=== PATIENT | male | born 1970 ===

== ENCOUNTER 2018-04-08 14:04 | Emergency (ER) | payer OTHER ==
[~2018-04-08] VITALS: Ht 167.6 cm; Wt 89.4 kg
[2018-04-08] MEDS ORDERED: VENTOLIN HFA18 GM (14:19)
[2018-04-08] MEDS ORDERED: ALBUTEROL0.63 MG/3 IH (14:20)
[2018-04-08] MEDS ORDERED: SINGULAIR10 MG PO (14:20)
== END 2018-04-09 08:29 | disposition home or self-care (01) ==
LOC: ER 14:04 → EDBD 14:59 → ER 04-09 08:29
DX: J45.998 Other asthma (principal); J06.9 Acute upper respiratory infection, unspecified

== ENCOUNTER 2020-08-19 12:54 | Emergency (ER) | payer OTHER ==
[~2020-08-19] VITALS: Ht 175.3 cm; Wt 87.5 kg
[~2020-08-19 12:54] MED LIST: ALBUTEROL0.63 MG/3 IH; SINGULAIR10 MG PO; VENTOLIN HFA18 GM
[2020-08-19] MEDS ORDERED: SINGULAIR10 MG PO (13:15)
== END 2020-08-19 16:47 | disposition home or self-care (01) ==
LOC: ER 12:54
DX: B34.9 Viral infection, unspecified (principal); Z11.52 Encounter for screening for COVID-19

== ENCOUNTER 2022-06-09 12:29 | Emergency (ER) | payer OTHER ==
[~2022-06-09] VITALS: Ht 175.3 cm; Wt 91.6 kg
== END 2022-06-09 17:04 | disposition home or self-care (01) ==
LOC: ER 12:29
DX: L03.90 Cellulitis, unspecified (principal)

== ENCOUNTER 2022-07-06 12:13 | Inpatient (IN) | payer OTHER ==
[~2022-07-06] VITALS: Ht 175.3 cm; Wt 90.7 kg
== END 2022-07-09 14:33 | disposition home or self-care (01) | DRG 392 ==
LOC: ER 12:13 → SEC-K 17:12 → MEDJ 17:12
PROVIDERS: ADMIT Internal Medicine; ATTEND Internal Medicine
PROC: BW21ZZZ Computerized Tomography (CT Scan) of Abdomen and Pelvis (ICD-10-PCS; principal; 2022-07-06)
DX: K57.32 Diverticulitis of large intestine without perforation or abscess without bleeding (principal); Z20.822 Contact with and (suspected) exposure to COVID-19